=== PATIENT | female | born 1995 | race Two or more races ===

== ENCOUNTER 2021-06-20 19:26 | Observation (INO) | payer OTHER ==
[2021-06-20] MEDS ORDERED: IV RINGERS,LACTATED 1000ML 1,000 ML IV PRN (19:45)
[2021-06-20 19:58] LABS: BILIRUBIN,URINE NEGATIVE (NEG); CLARITY,URINE CLEAR; COLOR,URINE YELLOW; NITRITE,URINE NEGATIVE (NEG); PH,URINE 7.5 (<5.0-8.0); PROTEIN,URINE NEGATIVE (NEG-TRACE); UROBILINOGEN,URINE 0.2 mg/dL (0.2 mg/dL)
[2021-06-20 20:05] LABS: BACTERIA,URINE 0 /HPF (0-FEW); RBC,URINE 0 /HPF (0-2)
[2021-07-14] MEDS ORDERED: DOCU-109 PO (10:24)
[2021-07-14] MEDS ORDERED: OXYC1TAB15 PO (10:24)
[2021-07-14] MEDS ORDERED: IBUP-1060 PO (10:24)
[2021-07-14] MEDS ORDERED: FERR325T14 PO (10:24)
== END 2021-06-20 21:26 | disposition home or self-care (01) ==
LOC: 3 SO LND 19:26
PROVIDERS: ADMIT Obstetrics & Gynecology; ATTEND Obstetrics & Gynecology
DX: O62.9 Abnormality of forces of labor, unspecified (principal); Z79.899 Other long term (current) drug therapy; Z3A.37 37 weeks gestation of pregnancy
CPT/HCPCS: 59025; 81001; 87086; G0378; G0379

== ENCOUNTER 2021-06-25 20:30 | Observation (INO) | payer OTHER ==
[~2021-06-25] VITALS: Ht 157.5 cm; Wt 71.5 kg
[2021-06-25] MEDS ORDERED: IV RINGERS,LACTATED 1000ML 1,000 ML IV PRN (20:45)
[2021-06-25 21:02] LABS: BILIRUBIN,URINE NEGATIVE (NEG); CLARITY,URINE CLEAR; NITRITE,URINE NEGATIVE (NEG); PROTEIN,URINE NEGATIVE (NEG-TRACE); UROBILINOGEN,URINE 0.2 mg/dL (0.2 mg/dL)
[2021-06-25 21:09] LABS: COLOR,URINE STRAW
[2021-06-25 21:11] LABS: BACTERIA,URINE FEW /HPF (0-FEW); RBC,URINE 0 /HPF (0-2); WBC,URINE OCC /HPF (0-4)
[2021-07-14] MEDS ORDERED: FERR325T14 PO (10:24)
[2021-07-14] MEDS ORDERED: IBUP-1060 PO (10:24)
[2021-07-14] MEDS ORDERED: DOCU-109 PO (10:24)
[2021-07-14] MEDS ORDERED: OXYC1TAB15 PO (10:24)
== END 2021-06-25 21:50 | disposition home or self-care (01) ==
LOC: 3 SO LND 20:30
PROVIDERS: ADMIT Obstetrics & Gynecology; ATTEND Obstetrics & Gynecology
DX: O26.893 Other specified pregnancy related conditions, third trimester (principal); R10.30 Lower abdominal pain, unspecified; N89.8 Other specified noninflammatory disorders of vagina; Z3A.38 38 weeks gestation of pregnancy
CPT/HCPCS: 59025; 81001; G0378; G0379

== ENCOUNTER 2021-07-07 15:27 | Observation (INO) | payer OTHER ==
--- NOTE | 2021-07-07 17:22 | RAD ---
CLINICAL HISTORY: Decreased movement. Prior . COMPARISON: None available. TECHNIQUE: Multiple grayscale images, color Doppler, and M-mode images of the uterus are obtained. Bi ophysical profile was performed. FINDINGS: The lie is cephalic. SUNG: 7 cm Heart Rate:139 BREATHIN MOVEMENT: 2 TONE: 2 FLUID: 2 BIOPHYSICAL PROFILE SCORE: 8/8 IMPRESSION: Normal biophysical profile score 8/8. Electronically signed by: Prosper Allen MD (07/07/2021 5:20 PM) [id number]
== END 2021-07-07 17:46 | disposition home or self-care (01) ==
LOC: 3 SO LND 15:27
PROVIDERS: ADMIT Obstetrics & Gynecology; ATTEND Obstetrics & Gynecology
DX: O36.8130 Decreased fetal movements, third trimester, not applicable or unspecified (principal); O48.0 Post-term pregnancy; Z3A.40 40 weeks gestation of pregnancy
CPT/HCPCS: 59025; 76819; G0378; G0379